=== PATIENT | male | born 1975 | race Caucasian/White ===

== ENCOUNTER 2016-07-15 04:16 | Emergency (ER) | payer OTHER ==
[~2016-07-15] VITALS: Ht 167.6 cm; Wt 88.6 kg
[2016-07-15 04:18] VITALS: BP 133/92; PULSE 68; RESP 18; O2SAT 97
[2016-07-15 05:32] LABS: APPEARANCE,URINE CLEAR (CLEAR,HAZY); COLOR,URINE YELLOW (YELLOW); OCCULT BLOOD,URINE TRACE (NEGATIVE); UROBILINOGEN,URINE NORMAL (NORMAL)
--- NOTE | 2016-07-15 06:15 | ED.REPORT ---
HPI-Back Pain 40 and Over Date of Service Jul 15, 2016 ED Provider: Whitney Curran MD Mr. James is a 40 y/o man who presents today for low back pain that started earlier this morning around [id number] while at work. It starts on the left side of his back and radiates out from his spine and hurts when he bends over, goes upstairs, and walking. He feels better when he does not move. It's hard to stand up straight. No fall or injury. 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 No numbness, tingling, or weakness in his legs. No loss of bowel or bladder function or saddle anesthesia. He has had pain similar to this after sleeping wrong. Ibuprofen and muscle relaxers helped the last time. He has not tried any medication yet. Nursing Notes Stated Complaint: LOWER BACK PAIN Chief Complaint: Back Pain or Injury Nursing Notes Reviewed: Yes Allergies: Coded Allergies: naproxen (Verified Allergy, Unknown, 07/15/16) Hard to breath Scheduled PRN Cyclobenzaprine (Cyclobenzaprine) 5 Mg Tablet 5 MG PO TID PRN PRN Spasm Ibuprofen (Ibuprofen) 600 Mg Tablet 600 MG PO QID PRN PRN For Pain General Time Seen by MD: 06:08 Chief Complaint Back pain Hx Obtained From: Patient Sudden in Onset?: Yes Past Medical History Past Medical History Notes: APPLE Metzger Patient has been seen at [facility] (05/07) and [facility] (05/15) for similar symptoms and recieved hydrocodone-acetaminophen Rx for both CHLOÉ Past Medical History Bilateral inguinal hernias pancreatitis Past Surgical History R wrist surgery Smoking History Current Every Day Smoker Social History Alcohol Use: Denies alcohol use 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) Other Social History: Good social support, Local resident Ambulatory Status Independent Review of Systems Basic Review of Systems Endocrine: No weight gain, No weight loss Constitutional: Denies: Chills, Fever, Weakness - generalized Respiratory: Denies: Non-productive cough, Shortness of breath Cardiovascular: Denies: Chest pain GI: Denies: Abdominal pain, Constipation, Diarrhea, Hematochezia, Nausea, Vomiting Male: Denies Dysuria, Denies Hematuria, Denies Incontinence, Denies Urinary frequency, Denies Urinary urgency Musculoskeletal: Reports: Back pain, Denies: Extremity pain Neurologic: Denies: Bladder dysfunction, Bowel dysfunction, Focal weakness, Headache, Numbness, Problem walking, Weakness Physical Exam Initial Vital Signs Vital Signs (First) Date Time Temp Pulse Resp B/P Pulse Ox O2 Delivery O2 Flow Rate FiO2 07/15/16 04:18 36.0 68 18 133/92 97 Room Air Initial VS: Reviewed Head / Eyes: Atraumatic, Normocephalic, PERRL ENT: Mucous membranes moist, Conjunctiva normal, No scleral icterus Skin: Warm, Dry, No cyanosis Psychiatric: Mood/affect normal, Behavior normal, Normal thought content Respiratory / Chest: Breath sounds NL, Breath sounds = bilat, No respiratory distress, No rales, No rhonchi, No wheezing Cardiovascular: Heart rate NL, Regular rhythm, Heart sounds NL, No gallop, No murmurs, No rubs Abdomen: Soft, Non-tender, No guarding, No rebound, BS normoactive Back: Inspection NL, Full range of motion Flank / Spine / Paraspinal: Positive: Lumbar paraspinal tend... (Low), SI joint tender L Muscle Spasm / ROM: Positive: Lumbar area spasm (at left paraspinal) Neurologic: Oriented X3, Speech NL, No motor deficits, No sensory deficits, CN II - XII intact Lower Extremity / Pelvis / MS: Full range of motion, No swelling, Non-tender, Neurologic intact, Vascular intact Interpretation & Diagnostics Lab Results Interpretation Test 07/15/16 04:55 Urine Color Yellow (YELLOW) Urine Appearance Clear (CLEAR,HAZY) Urine pH 6.0 (5.0-8.0) Urine Specific [place] 1.010 (1.003-1.035) Urine Protein Negativemg/dL (NEG,TRACE) Urine Glucose (UA) Negativemg/dL (NEGATIVE) Urine Ketones Negativemg/dL (NEGATIVE) Urine Occult Blood Trace (NEGATIVE) Urine Nitrite Negative (NEGATIVE) Urine Bilirubin Negative (NEGATIVE) Urine Urobilinogen Normalmg/dL (NORMAL) Urine Leukocyte Esterase Negative (NEGATIVE) Urine RBC 0-2/hpf (0-2) Urine WBC 0-5/hpf (0-5) Urine Epithelial Cells Few/hpf (NONE-MOD) Urine Crystals None seen (NONE SEEN) Urine Bacteria None/hpf (NONE-FEW) Urine Hyaline Casts None/lpf (NONE) Urine Granular Casts None seen (NONE SEEN) Urine Waxy Casts None seen (NONE SEEN) Urine Red Blood Cell Casts None seen (NONE SEEN) Urine White Blood Cell Casts None seen (NONE SEEN) Urine Mucus None seen (None Seen) Urine Trichomonas None seen (NONE SEEN) Urine Yeast None (NONE SEEN) Urine Culture Reflexed Not indicated Hold Urine Received (Received) Re-Eval/Medical Decision Med Decision/Clinical Course 1. low back pain -Pt has left paraspinal muscle tension noted on physical exam. He has 5/5 muscle strength and sensation is intact in bilateral lower extremity. He does not report any loss of bladder or bowel. He is afebrile and does not report any recent weight loss. DDx includes but not limited to: Lumbosacral paraspinal muscle spasm or strain, degenerative joint disease, osteoarthritis, acute lumbar herniated disc, cauda equina syndrome, epidural abscess, nephrolithiasis Discharge & Departure Impression: Primary Impression: Lumbosacral strain Encounter type: initial encounter Qualified Code: S39.012A - Strain of muscle, fascia and tendon of lower back, initial encounter Disposition: Home Discharge Condition All VS Reviewed: Yes Condition: Stable Patient Instructions: Acute Low Back Pain (ED), Low Back Strain (ED) Additional Instructions: You have a muscle spasm in your low back. I recommend moving as much as you can because activity and movement help to relax your back muscles even if it causes pain. You can use ice on your low back by putting an ice pack in the painful area for 20 minutes at a time with at least 30 minute breaks between icing for the next 2 days. You can also do at home-stretches to stretch the muscles in your low back. For example, when when laying down in bed, bringing your belly button towards your spine for 10 seconds and hold it. Repeat that 5 times. Another option, while you are sitting, you can try to touch your toes and bring your shoulder towards your hip on both sides. You are also given a prescription for cyclobenzaprine to help with the muscle spasm and a prescription for ibuprofen 600 mg to help with the pain. Takes cyclobenzaprine 5 mg 1 tablet by mouth every 8 hours as needed for muscle spasm. Do not drive or operate heavy machinery while taking cyclobenzaprine. You can also take ibuprofen 600 mg 1 tablet by mouth every 6 hours as needed for pain. Ibuprofen should be taken with a meal. Follow-up with the residency clinic about your low back pain and to establish care there. Return to the emergency department if you develop fever, chills, numbness or tingling in your legs or in your thighs, weakness in your legs, or lose control of your bowels or bladder. Congratulations on your sobriety! Referrals: [facility] (PCP) [facility] Res[facility] 1 Week Attending Statement Patient seen and examined. Muscle spasm without any bony point tenderness or concern for epidural abscess discitis or other severe pathology. I agree with documentation, exam and plan as above copies to: [facility] Res[facility] Michelle Galo DO Jul 15, 2016 06:15 Whitney Curran MD Jul 15, 2016 07:05
[2016-07-15] MEDS ORDERED: Ketorolac 30 mg/mL 2 mL Inj IM ONE (06:35)
[2016-07-15] MEDS ORDERED: IBUP-1827 PO (06:45)
[2016-07-15] MEDS ORDERED: CYCL5TAB PO (06:45)
[2016-07-15 07:17] VITALS: BP 124/84; PULSE 60; RESP 18; O2SAT 98
== END 2016-07-15 07:19 | disposition home or self-care (01) ==
LOC: SED 04:16
DX: S39.012A Strain of muscle, fascia and tendon of lower back, initial encounter (principal); X50.0XXA Overexertion from strenuous movement or load, initial encounter; Y93.89 Activity, other specified; Y92.69 Other specified industrial and construction area as the place of occurrence of the external cause; Y99.8 Other external cause status; F17.210 Nicotine dependence, cigarettes, uncomplicated; Z88.5 Allergy status to narcotic agent
CPT/HCPCS: 81000; 96372; 99284; J1885